=== PATIENT | female | born 1975 | race Native Hawaiian/Other Pacific Islander ===

== ENCOUNTER → 2018-05-01 | Outpatient (CLI) | payer BC ==
[2018-05-01 11:01] VITALS: BP 166/103; PULSE 76; TEMP 98.1; BMI 46.1
--- NOTE | 2018-05-01 11:17 | P.HPBAR ---
Bariatric H&P - History & Physicial H&P Date: 05/01/18 History & Physicial: Visit/CC: Patient initial contact: Initial weight: Initial weight in pounds: Height: 5 ft 7.5 in Initial BMI: Last weight: Current weight: 135.76 kg Current weight in pounds: Current BMI: [place] body weight (based on NIH guidelines): Excess body weight loss: The patient is a 42 year-old F who presents for Bariatric Assessment. HPI: She comes in looking for a bariatric procedure. She is on Nexium and takes Tums regularly. She reports trouble with tomato based food. No family history of gallbladder problems. She wants the sleeve. She reports panniculitis. PLAN: 1. EGD 2. [facility] [place] Bariatric [place]list Checklist: Plan: Checklist: EGD: 1. Hiatal hernia: 2. H. Pylori: HgbA1c: Vitamin D: Smoking: Primary care physician referral: Psychiatry clearance: Cardiology clearance: Sleep study: Diet journal: VTE risk score: VTE risk level: Rehab needs at discharge:
[2018-05-01 13:08] LABS: HGB 13.7 gm/dL (11.4-16.0); MCH 29.3 pg (25.0-35.0); MCHC 32.6 g/dL (31.0-37.0); MCV 89.8 fL (80.0-100.0); Platelet Count 312 k/uL (150-450); RBC 4.67 m/uL (3.80-5.40); RDW 13.6 % (11.5-15.5); WBC 7.8 k/uL (3.8-10.6)
[2018-05-01 19:37] LABS: Albumin 4.3 g/dL (3.80-4.90); Albumin/Globulin Ratio 1.95 (1.60-3.17); Anion Gap 7.5 mmol/L (4.00-12.00); Calcium 9.7 mg/dL (8.7-10.3); Carbon Dioxide 28.5 mmol/L (21.6-31.8); Globulin 2.2 g/dL (1.6-3.3); LDL Cholesterol,Calculated 121.2 mg/dL (0.0-131.0); Potassium 4.4 mmol/L (3.5-5.5); Total Bilirubin 0.3 mg/dL (0.2-1.2); Total Protein 6.5 g/dL (6.2-8.2); VLDL Calculation 26.8 mg/dL (5.00-40.00)
[2018-05-01 19:51] LABS: Iron Saturation 12.3 (12.00-45.00)
[2018-05-01 19:59] LABS: Vitamin D 25 Hydroxy 17.7 ng/mL (30.0-100.0)
[2018-05-01 20:00] LABS: Folate, Serum 6.3 ng/mL
== END ==
LOC: BARWHC3 10:19 → MERGE 10:20
PROVIDERS: ATTEND Surgery Plastic and Reconstructive Surgery
DX: Z48.815 Encounter for surgical aftercare following surgery on the digestive system (principal); E66.01 Morbid (severe) obesity due to excess calories; E88.81 Metabolic syndrome and other insulin resistance; E44.0 Moderate protein-calorie malnutrition; E55.9 Vitamin D deficiency, unspecified; I11.9 Hypertensive heart disease without heart failure; G47.30 Sleep apnea, unspecified; Z68.43 Body mass index [BMI] 50.0-59.9, adult; Z98.84 Bariatric surgery status
CPT/HCPCS: 36415; 80053; 80061; 82306; 82607; 82728; 82746; 83540; 83550; 84425; 84443; 85027; 99201

== ENCOUNTER 2018-06-16 07:02 | Day surgery (SDC) | payer BC ==
[2018-06-12 16:45] VITALS: BMI 44.1
--- NOTE | 2018-06-16 06:28 | P.GSHP ---
History of Present Illness H&P Date: 06/16/18 CHIEF COMPLAINT: GERD HISTORY OF PRESENT ILLNESS: The patient is a 42-year-old female who presents reports gastroesophageal reflux disease. Upper endoscopy was offered for further evaluation and management. PAST MEDICAL HISTORY: Please see list. PAST SURGICAL HISTORY: Please see list. MEDICATIONS: Please see list. ALLERGIES: Please see list. SOCIAL HISTORY: No illicit drug use FAMILY HISTORY: No reports of Crohn disease or ulcerative colitis. REVIEW OF ORGAN SYSTEMS: CONSTITUTIONAL: No reports of fevers or chills. GI: Denies any blood in stools or constipation. PHYSICAL EXAM: VITAL SIGNS: Stable GENERAL: Well-developed and pleasant in no acute distress. HEENT: No scleral icterus. Extraocular movements grossly intact. Moist buccal mucosa. NECK: Supple without lymphadenopathy. CHEST: Unlabored respirations. Equal bilateral excursions. CARDIOVASCULAR: Regular rate and rhythm. Distal 2+ pulses. ABDOMEN: Soft, nondistended. MUSCULOSKELETAL: No clubbing, cyanosis, or edema. ASSESSMENT: 1. Gastroesophageal reflux disease PLAN: 1. Recommend proceeding with an upper endoscopy Past Medical History Past Medical History: Cancer, GERD/Reflux, Osteoarthritis (OA), Thyroid Disorder Additional Past Medical History / Comment(s): hx. thyroid cancer 2014, recent bronchitis now resolved History of Any Multi-Drug Resistant Organisms: None Reported Past Surgical History: Tonsillectomy Additional Past Surgical History / Comment(s): thyroidectomy Past Anesthesia/Blood Transfusion Reactions: Motion Sickness, Postoperative Nausea & Vomiting (PONV) Smoking Status: Never smoker Medications and Allergies Home Medications Medication Instructions Recorded Confirmed Type Esomeprazole Magnesium [NexIUM] 20 mg PO DAILY 05/01/18 06/12/18 History Ibuprofen 200 mg PO Q6H PRN 05/01/18 06/12/18 History Levothyroxine Sodium [Synthroid] 175 mcg PO DAILY 05/01/18 06/12/18 History Phentermine HCl [Adipex-P] 37.5 mg PO DAILY 05/01/18 06/12/18 History Allergies Allergy/AdvReac Type Severity Reaction Status Date / Time No Known Allergies Allergy Verified 06/12/18 16:42
[~2018-06-16 07:02] MED LIST: LACTATED RINGERS 1,000 ML IV SCH
[2018-06-16 07:25] VITALS: TEMP 97.6
[2018-06-16] MEDS ORDERED: LIDOCAINE 1% 20 ML VIAL (10MG/ML) FOR IV START INTRADERMA ONE (07:38)
[2018-06-16] MEDS ORDERED: ONDANSETRON 4 MG/2 ML VIAL IVP ONE (07:39)
[2018-06-16] MEDS ORDERED: LIDOCAINE 1% INJ 10MG/ML (20 ML MDV) ONE (07:52)
[2018-06-16] MEDS ORDERED: PROPOFOL 10 MG/ML 20 ML VIAL IV ONE (07:52)
--- NOTE | 2018-06-16 08:10 | P.PCN ---
Date of Procedure: 06/16/18 Description of Procedure: PREOPERATIVE DIAGNOSIS: Gastroesophageal reflux disease. Morbid obesity. POSTOPERATIVE DIAGNOSIS: Gastroesophageal reflux disease. Morbid obesity. Gastritis, chronic and superficial without bleeding OPERATION: Esophagogastroduodenoscopy with biopsies along antrum. SURGEON: Génesis Montemayor MD ANESTHESIA: MAC. INDICATIONS: The patient is a 42-year-old female who presents with a history of reflux disease. Benefits and risks of the procedure were described. Informed consent was obtained. DESCRIPTION: The patient was brought into the endoscopy suite and laid in the left lateral decubitus position. An Olympus gastroscope was passed along the posterior oropharynx down to the distal esophagus where the squamocolumnar junction was encountered at 42 cm from the incisors. The stomach was entered and no bile reflux was found. Additional findings are listed below. Biopsies with cold forceps were obtained of the antrum. The first through third portion of the duodenum was examined and unremarkable. Retroflexion of the scope confirmed Hill grade 2 lower esophageal valve. The squamocolumnar junction demonstrated LA grade A erosive esophagitis. The stomach was desufflated. The patient tolerated the procedure well. FINDINGS: Squamocolumnar junction 42 cm from the incisors. Diaphragmatic hiatus at 42 cm. Hill grade 2 lower esophageal valve. LA grade A erosive esophagitis. No active duodenitis. Chronic gastritis superficial with cold biopsy forceps obtained along the antrum and fundus of the stomach RECOMMENDATIONS: Upper endoscopy as needed. Plan - Discharge Summary Discharge Rx Participant: No New Discharge Prescriptions: No Action Phentermine HCl [Adipex-P] 37.5 mg PO DAILY Levothyroxine Sodium [Synthroid] 175 mcg PO DAILY Ibuprofen 200 mg PO Q6H PRN PRN Reason: Pain Esomeprazole Magnesium [NexIUM] 20 mg PO DAILY Discharge Medication List Esomeprazole Magnesium [NexIUM] 20 mg PO DAILY 05/01/18 [History] Ibuprofen 200 mg PO Q6H PRN 05/01/18 [History] Levothyroxine Sodium [Synthroid] 175 mcg PO DAILY 05/01/18 [History] Phentermine HCl [Adipex-P] 37.5 mg PO DAILY 05/01/18 [History] Follow up Appointment(s)/Referral(s): [facility] [NON-STAFF] - 07/16/18 Patient Instructions/Handouts: Gastritis (DC) Discharge Disposition: HOME SELF-CARE
[2018-06-16 08:33] VITALS: RESP 18
[2018-06-16 08:38] VITALS: BP 100/70; PULSE 58
== END 2018-06-16 08:45 | disposition home or self-care (01) ==
LOC: ORWHC2ENDO 07:02
PROVIDERS: ATTEND Surgery Plastic and Reconstructive Surgery
DX: K29.50 Unspecified chronic gastritis without bleeding (principal); K21.0 Gastro-esophageal reflux disease with esophagitis; M19.90 Unspecified osteoarthritis, unspecified site; E89.0 Postprocedural hypothyroidism; Z79.890 Hormone replacement therapy; Z79.899 Other long term (current) drug therapy; E66.01 Morbid (severe) obesity due to excess calories; Z68.41 Body mass index [BMI] 40.0-44.9, adult
CPT/HCPCS: 81025; 88305; 43239; J2405; J2001; J2704

== ENCOUNTER → 2018-09-01 | Outpatient (CLI) | payer BC ==
[2018-09-01 13:30] VITALS: BMI 44.6
== END | disposition home or self-care (01) ==
LOC: BARWHC3 08:42
PROVIDERS: ATTEND Surgery Plastic and Reconstructive Surgery
DX: E66.01 Morbid (severe) obesity due to excess calories (principal); Z68.41 Body mass index [BMI] 40.0-44.9, adult
CPT/HCPCS: 97804

== ENCOUNTER → 2018-11-05 | Outpatient (CLI) | payer BC ==
[2018-11-05 17:20] VITALS: BP 123/87; PULSE 53; TEMP 97.9
--- NOTE | 2018-11-05 17:58 | P.PN ---
Subjective Progress Note Date: 11/05/18 DATE OF SERVICE: 11/05/2018 CHIEF COMPLAINT: Morbid obesity HISTORY OF PRESENT ILLNESS: Mojgan Greenberg is a 43-year-old female who comes with lifelong morbid obesity. She was looking into sleeve. She reports panniculitis. She has arthritis of the knee and lower back. She presents for only the 2nd time in the bariatric clinic. She has completed her diet class but has trouble remembering her post-bariatric diet. She has not started to replace her iron or vitamin D in the last 6 months since first checked. Her EKG is outdated from over 1 year ago. She has completed EGD which showed moderate gastritis. She has history of thyroid cancer and is on thyroid supplement. She still has her gallbladder. She presents to have a gastric bypass. She completed medical supervised weight loss. At height of 5 feet 7.5 inches, her ideal body weight is 158 pounds. She comes in 295 pounds from 299 pounds, 6 months ago. She has lost 3 pounds in 6 months. Her body mass index highest is 46.2 down to 45.7. She is 137 pounds overweight. PAST MEDICAL HISTORY: 1. Morbid obesity due to excess calories 2. Body mass index of 46.2, initial 3. Osteoarthritis of the knees. 4. Osteoarthritis of the lower back. 5. Gastroesophageal reflux disease 6. Hypothyroidism PAST SURGICAL HISTORY: 1. Thyroidectomy 2. Tonsillectomy HOME MEDICATIONS: ALLERGIES: Home Medications Medication Instructions Recorded Confirmed Type Esomeprazole Magnesium [NexIUM] 20 mg PO DIRECTED 05/01/18 05/01/18 History Ibuprofen 200 mg PO DIRECTED 05/01/18 05/01/18 History Levothyroxine Sodium [Synthroid] 175 mcg PO DAILY 05/01/18 05/01/18 History Phentermine HCl [Adipex-P] 37.5 mg PO DAILY 05/01/18 05/01/18 History Allergies Allergy/AdvReac Type Severity Reaction Status Date / Time No Known Allergies Allergy Verified 05/01/18 11:02 SOCIAL HISTORY: No past tobacco use. FAMILY HISTORY: No family history of ulcerative colitis disease or Crohn's disease. No lupus in the family. No reports of stomach or esophageal cancer. REVIEW OF ORGAN SYSTEMS: CONSTITUTIONAL: At height of 5 feet 7.5 inches, her ideal body weight is 158 pounds. She comes in 295 pounds from 299 pounds, 6 months ago. She has lost 3 pounds in 6 months. Her body mass index highest is 46.2 down to 45.7. She is 137 pounds overweight. HEENT: Denies any active troubles with vision or hearing. No troubles with swallowing. ENDOCRINE: No diabetes. Has hypothyroidism. CARDIOVASCULAR: No reports of palpitations or heart attacks or chest pain. RESPIRATORY: No pneumonia. No asthma. GI: Denies any bright red blood per rectum. No diarrhea. Has gastroesophageal reflux disease. MUSCULOSKELETAL: Has lower back pain and joint pain. Has osteoarthritis of the knees. NEURO: No headaches. No seizure disorders. PSYCH: No depression. No suicidal ideation. RHEUMATOLOGIC: No lupus. No rheumatoid arthritis. HEMATOLOGIC: Denies any abnormal bleeding or bruising. No personal history of DVTs. SKIN: No rash. No skin cancer. PHYSICAL EXAM: VITAL SIGNS: Height 5 foot 7.5 inches, weight 295 pounds. BMI 45.7 Vital Signs Temp 97.9 F 11/05/18 16:23 Pulse 53 L 11/05/18 16:23 Resp BP 123/87 11/05/18 16:23 Pulse Ox GENERAL: Well-developed in no acute distress. HEENT: No scleral icterus. Extraocular movements grossly intact. Hears conversational speech. No nasal drainage. NECK: Supple without lymphadenopathy. CHEST: Nonlabored respirations with equal bilateral excursions. CARDIOVASCULAR: Regular rate and regular rhythm. Distal 2+ pulses. ABDOMEN: Obese, soft, nontender, nondistended. MUSCULOSKELETAL: No clubbing, cyanosis. Gross strength 5/5 distal lower extremities. NEURO: No focal or lateralizing signs. Cranial nerves 2 through 12 grossly within normal limits. PSYCH: Appropriate affect. Alert and oriented to person, place and time. SKIN: Good skin turgor. Well perfused. LABS: Iron is low at 39, Vitamin D is low 17.7, TSH 0.030 EKG: pending EGD FINDINGS: Squamocolumnar junction 42 cm from the incisors. Diaphragmatic hiatus at 42 cm. Hill grade 2 lower esophageal valve. LA grade A erosive esophagitis. No active duodenitis. Chronic gastritis superficial with cold biopsy forceps obtained along the antrum and fundus of the stomach Final Pathologic Diagnosis GASTRIC ANTRUM, BIOPSY: Chronic gastritis with focal intestinal metaplasia, negative for dysplasia. Reactive changes such as foveolar hyperplasia are seen. Helicobacter organisms are not noted. ASSESSMENT: 1. Morbid obesity due to excess calories 2. Body mass index of 46.2, initial 3. Osteoarthritis of the knees. 4. Osteoarthritis of the lower back. 5. Gastroesophageal reflux disease 6. Hypothyroidism 7. Hypertensive heart disease. 8. Iron deficiency 9. Vitamin D deficiency PLAN: 1. Recommend bariatric labs 2. Recommend EKG 3. Follow up in 2 weeks. 4. She and understands persistent abnormal labs or abnormal EKG will likely delay surgery. 5. She has not had any iron treatments. 6. Vitamin D supplement 50,000 units weekly Objective - Vital Signs Vital signs: Vital Signs Temp 97.9 F 11/05/18 16:23 Pulse 53 L 11/05/18 16:23 Resp BP 123/87 11/05/18 16:23 Pulse Ox
== END | disposition home or self-care (01) ==
LOC: BARWHC3 15:57
PROVIDERS: ATTEND Surgery Plastic and Reconstructive Surgery
DX: E66.01 Morbid (severe) obesity due to excess calories (principal); M17.0 Bilateral primary osteoarthritis of knee; M47.816 Spondylosis without myelopathy or radiculopathy, lumbar region; K21.9 Gastro-esophageal reflux disease without esophagitis; E03.9 Hypothyroidism, unspecified; I11.9 Hypertensive heart disease without heart failure; E61.1 Iron deficiency; E55.9 Vitamin D deficiency, unspecified; Z68.42 Body mass index [BMI] 45.0-49.9, adult; Z85.850 Personal history of malignant neoplasm of thyroid; Z90.09 Acquired absence of other part of head and neck; Z79.890 Hormone replacement therapy; Z79.899 Other long term (current) drug therapy
CPT/HCPCS: 99211

== ENCOUNTER → 2018-11-06 | Outpatient (CLI) | payer BC ==
[2018-11-06 17:40] LABS: HGB 14.2 gm/dL (11.4-16.0); MCH 29.3 pg (25.0-35.0); MCV 88.9 fL (80.0-100.0); Mean Platelet Volume 6.5; Platelet Count 289 k/uL (150-450); RBC 4.84 m/uL (3.80-5.40); RDW 13.8 % (11.5-15.5); WBC 10.7 k/uL (3.8-10.6)
[2018-11-06 17:43] LABS: INR 0.8 (<1.2); Partial Thromboplastin Time 22.9 sec (22.0-30.0); Prothrombin Time 9.4 sec (9.0-12.0)
[2018-11-06 23:44] LABS: African American GFR (CKD) 90.8 (60.0-200.0); Albumin 4.3 g/dL (3.80-4.90); Albumin/Globulin Ratio 1.87 (1.60-3.17); Anion Gap 7.9 mmol/L (4.00-12.00); BUN/Creat Ratio 15.56 Ratio (12.00-20.00); Calcium 9.3 mg/dL (8.7-10.3); Carbon Dioxide 27.1 mmol/L (21.6-31.8); Chol/HDL Ratio 3.83; Globulin 2.3 g/dL (1.6-3.3); LDL Cholesterol,Calculated 121.8 mg/dL (0.0-131.0); Magnesium 1.8 mg/dL (1.5-2.4); Phosphorus 3.8 mg/dL (2.4-5.1); Potassium 4.2 mmol/L (3.5-5.5); Total Bilirubin 0.2 mg/dL (0.3-1.2); Total Protein 6.6 g/dL (6.2-8.2); VLDL Calculation 45.2 mg/dL (5.00-40.00)
[2018-11-07 00:24] LABS: Iron Saturation 9.75 (12.00-45.00)
[2018-11-07 01:16] LABS: Folate, Serum 10.5 ng/mL
[2018-11-07 02:03] LABS: Hemoglobin A1C 5.6 % (4.0-6.0)
[2018-11-07 15:04] LABS: Zinc, Serum 68 ug/dL (60-130)
[2018-11-10 06:57] LABS: Vitamin A 50 ug/dL (38-106)
[2018-11-11 17:08] LABS: Selenium 114 mcg/L (63-160)
== END | disposition home or self-care (01) ==
LOC: LABWHC1 16:49
PROVIDERS: ATTEND Surgery Plastic and Reconstructive Surgery
DX: E66.01 Morbid (severe) obesity due to excess calories (principal); E21.1 Secondary hyperparathyroidism, not elsewhere classified; E89.1 Postprocedural hypoinsulinemia; D50.9 Iron deficiency anemia, unspecified; E44.0 Moderate protein-calorie malnutrition; E55.9 Vitamin D deficiency, unspecified; K74.1 Hepatic sclerosis; N19 Unspecified kidney failure; K50.90 Crohn's disease, unspecified, without complications
CPT/HCPCS: 36415; 80053; 80061; 82306; 82525; 82607; 82728; 82746; 83036; 83540; 83550; 83735; 83970; 84100; 84134; 84255; 84425; 84443; 84590; 84630; 85027; 85610; 85730; 93005

== ENCOUNTER → 2018-11-19 | Outpatient (CLI) | payer BC ==
[2018-11-19 17:07] VITALS: BP 132/88; PULSE 98; RESP 16; TEMP 98.8; BMI 45.6
--- NOTE | 2018-11-19 17:45 | P.PN ---
Subjective Progress Note Date: 11/19/18 DATE OF SERVICE: 11/19/2018 CHIEF COMPLAINT: Morbid obesity HISTORY OF PRESENT ILLNESS: Mojgan Greenberg is a 43-year-old female who comes with lifelong morbid obesity. As a result of her obesity, she has developed osteoarthritis of the knees, osteoarthritis of the lower back, and gastroesophageal reflux disease. She has completed medical supervised weight loss, medical risk assessment. She presents to have a gastric bypass. She has received iron and vitamin D supplements. She comes in with understanding her bariatric diet. Her accompanies her. At height of 5 feet 7.5 inches, her ideal body weight is 158 pounds. She comes in 295 pounds unchanged from 1 month ago. Her body mass index highest is 46.2 down to 45.7. She is 137 pounds overweight. PAST MEDICAL HISTORY: 1. Morbid obesity due to excess calories 2. Body mass index of 46.2, initial 3. Osteoarthritis of the knees. 4. Osteoarthritis of the lower back. 5. Gastroesophageal reflux disease 6. Hypothyroidism PAST SURGICAL HISTORY: 1. Thyroidectomy 2. Tonsillectomy HOME MEDICATIONS: ALLERGIES: Home Medications Medication Instructions Recorded Confirmed Type Esomeprazole Magnesium [NexIUM] 20 mg PO DIRECTED 05/01/18 05/01/18 History Ibuprofen 200 mg PO DIRECTED 05/01/18 05/01/18 History Levothyroxine Sodium [Synthroid] 175 mcg PO DAILY 05/01/18 05/01/18 History Phentermine HCl [Adipex-P] 37.5 mg PO DAILY 05/01/18 05/01/18 History Allergies Allergy/AdvReac Type Severity Reaction Status Date / Time No Known Allergies Allergy Verified 05/01/18 11:02 SOCIAL HISTORY: No past tobacco use. FAMILY HISTORY: No family history of ulcerative colitis disease or Crohn's di sease. No lupus in the family. No reports of stomach or esophageal cancer. REVIEW OF ORGAN SYSTEMS: CONSTITUTIONAL: At height of 5 feet 7.5 inches, her ideal body weight is 158 pounds. She comes in 295 pounds from 299 pounds, 6 months ago. She has lost 3 pounds in 6 months. Her body mass index highest is 46.2 down to 45.7. She is 137 pounds overweight. HEENT: Denies any active troubles with vision or hearing. No troubles with swallowing. ENDOCRINE: No diabetes. Has hypothyroidism. CARDIOVASCULAR: No reports of palpitations or heart attacks or chest pain. RESPIRATORY: No pneumonia. No asthma. GI: Denies any bright red blood per rectum. No diarrhea. Has gastroesophageal reflux disease. MUSCULOSKELETAL: Has lower back pain and joint pain. Has osteoarthritis of the knees. NEURO: No headaches. No seizure disorders. PSYCH: No depression. No suicidal ideation. RHEUMATOLOGIC: No lupus. No rheumatoid arthritis. HEMATOLOGIC: Denies any abnormal bleeding or bruising. No personal history of DVTs. SKIN: No rash. No skin cancer. PHYSICAL EXAM: VITAL SIGNS: Height 5 foot 7.5 inches, weight 295 pounds. BMI 45.7 Vital Signs Temp 98.8 F 11/19/18 17:04 Pulse 98 11/19/18 17:04 Resp 16 11/19/18 17:04 BP 132/88 11/19/18 17:04 Pulse Ox GENERAL: Well-developed in no acute distress. HEENT: No scleral icterus. Extraocular movements grossly intact. Hears conversational speech. No nasal drainage. NECK: Supple without lymphadenopathy. CHEST: Nonlabored respirations with equal bilateral excursions. CARDIOVASCULAR: Regular rate and regular rhythm. Distal 2+ pulses. ABDOMEN: Obese, soft, nontender, nondistended. MUSCULOSKELETAL: No clubbing, cyanosis. Gross strength 5/5 distal lower extremities. NEURO: No focal or lateralizing signs. Cranial nerves 2 through 12 grossly within normal limits. PSYCH: Appropriate affect. Alert and oriented to person, place and time. SKIN: Good skin turgor. Well perfused. LABS: Iron was low under 50, vitamin D is low ASSESSMENT: 1. Morbid obesity due to excess calories 2. Body mass index of 46.2 to 45.7 3. Osteoarthritis of the knees. 4. Osteoarthritis of the lower back. 5. Gastroesophageal reflux disease 6. Hypothyroidism 7. Hypertensive heart disease. 8. Iron deficiency 9. Vitamin D deficiency PLAN: 1. Bariatric options between a sleeve, band and a Gunner-en-Y gastric bypass were reviewed in detail. The patient elected for a gastric bypass. Robotic assisted approach described. 2. The [place] [facility] Data was also reviewed with benefits and risks as described. 3. An 8 page second-generation bariatric consent form was reviewed in detail including potential of bleeding, infection, leaks, adequate weight loss, nutritional deficiencies which the patient demonstrated understanding of the risks. 4. A 2 week high-protein low caloric 800 kcal diet described to address hepatomegaly. 5. Preoperative labs including complete metabolic panel and CBC with type and screen recommended. 6. DVT prophylaxis per [place] [facility]. 7. Antibiotic prophylaxis. 8. Inpatient hospitalization anticipated for more than 2 nights. 9. All questions and concerns were addressed with the patient. Objective - Vital Signs Vital signs: Vital Signs Temp 98.8 F 11/19/18 17:04 Pulse 98 11/19/18 17:04 Resp 16 11/19/18 17:04 BP 132/88 11/19/18 17:04 Pulse Ox Intake & Output 11/18/18 11/19/18 11/19/18 18:59 06:59 18:59 Weight 134.263 kg
== END | disposition home or self-care (01) ==
LOC: BARWHC3 15:54
PROVIDERS: ATTEND Surgery Plastic and Reconstructive Surgery
DX: E66.01 Morbid (severe) obesity due to excess calories (principal); M17.0 Bilateral primary osteoarthritis of knee; M47.816 Spondylosis without myelopathy or radiculopathy, lumbar region; K21.9 Gastro-esophageal reflux disease without esophagitis; E03.9 Hypothyroidism, unspecified; I11.9 Hypertensive heart disease without heart failure; E61.1 Iron deficiency; E55.9 Vitamin D deficiency, unspecified; Z68.42 Body mass index [BMI] 45.0-49.9, adult; Z90.09 Acquired absence of other part of head and neck; Z79.890 Hormone replacement therapy; Z79.899 Other long term (current) drug therapy
CPT/HCPCS: 99211

== ENCOUNTER → 2018-12-06 | Outpatient (CLI) | payer BC ==
[2018-12-06 16:37] LABS: Iron Saturation 16.79 (12.00-45.00)
[2018-12-06 17:50] LABS: Hemoglobin A1C 5.3 % (4.0-6.0)
== END | disposition home or self-care (01) ==
LOC: LABWHC1 11:44
PROVIDERS: ATTEND Surgery Plastic and Reconstructive Surgery
DX: E66.01 Morbid (severe) obesity due to excess calories (principal); D50.8 Other iron deficiency anemias
CPT/HCPCS: 36415; 82728; 83036; 83540; 83550

== ENCOUNTER → 2018-12-06 | Outpatient (CLI) | payer BC ==
[2018-12-06 12:27] LABS: Basophils # (A) 0.1 k/uL (0-0.2); Basophils % (A) 1 %; Eosinophils # (A) 0.2 k/uL (0-0.7); Eosinophils % (A) 2 %; HCT 43.8 % (34.0-46.0); HGB 14.6 gm/dL (11.4-16.0); Lymphocytes # (A) 3.1 k/uL (1.0-4.8); Lymphocytes % (A) 30 %; MCH 29.7 pg (25.0-35.0); MCHC 33.4 g/dL (31.0-37.0); Mean Platelet Volume 6.4; Monocytes # (A) 0.4 k/uL (0-1.0); Monocytes % (A) 4 %; Neutrophils # (A) 6.6 k/uL (1.3-7.7); Neutrophils % (A) 63 %; Platelet Count 294 k/uL (150-450); RBC 4.92 m/uL (3.80-5.40); RDW 14.3 % (11.5-15.5); WBC 10.5 k/uL (3.8-10.6)
[2018-12-06 12:36] LABS: ALT 30 U/L (9-52); AST 23 U/L (14-36); African American GFR (CKD) >90 (>60 ml/min/1.73 sqM); Albumin 4.3 g/dL (3.5-5.0); Alkaline Phosphatase 60 U/L (38-126); Anion Gap 11 mmol/L; Blood Urea Nitrogen 22 mg/dL (7-17); Calcium 9.8 mg/dL (8.4-10.2); Carbon Dioxide 25 mmol/L (22-30); Chloride 103 mmol/L (98-107); Glucose 90 mg/dL (74-99); Potassium 4.4 mmol/L (3.5-5.1); Sodium 139 mmol/L (137-145); Total Bilirubin 0.5 mg/dL (0.2-1.3); Total Protein 7.4 g/dL (6.3-8.2)
== END | disposition home or self-care (01) ==
LOC: LABPAT 11:41
PROVIDERS: ATTEND Surgery Plastic and Reconstructive Surgery
DX: Z01.812 Encounter for preprocedural laboratory examination (principal)
CPT/HCPCS: 80053; 85025

== ENCOUNTER 2018-12-15 07:40 | Inpatient (IN) | payer BC ==
--- NOTE | 2018-12-14 20:42 | P.GSHP ---
History of Present Illness H&P Date: 12/15/18 DATE OF SERVICE: 12/15/2018 CHIEF COMPLAINT: Morbid obesity HISTORY OF PRESENT ILLNESS: Mojgan Greenberg is a 43-year-old female who comes with lifelong morbid obesity. As a result of her obesity, she has developed osteoarthritis of the knees, osteoarthritis of the lower back, and gastroesopha geal reflux disease. She has completed medical supervised weight loss, medical risk assessment. She presents to have a gastric bypass. She has received iron and vitamin D supplements. She comes in with understanding her bariatric diet. Her accompanies her. At height of 5 feet 7.5 inches, her ideal body weight is 158 pounds. She comes in 280 pounds from 295 pounds 3 weeks ago. She has lost 15 pounds in 3 weeks. Her body mass index highest is 46.2 down to 43.4. She is 122 pounds overweight. PAST MEDICAL HISTORY: 1. Morbid obesity due to excess calories 2. Body mass index of 46.2, initial 3. Osteoarthritis of the knees. 4. Osteoarthritis of the lower back. 5. Gastroesophageal reflux disease 6. Hypothyroidism PAST SURGICAL HISTORY: 1. Thyroidectomy 2. Tonsillectomy HOME MEDICATIONS: ALLERGIES: Home Medications Medication Instructions Recorded Confirmed Type Esomeprazole Magnesium [NexIUM] 20 mg PO DIRECTED 05/01/18 05/01/18 History Ibuprofen 200 mg PO DIRECTED 05/01/18 05/01/18 History Levothyroxine Sodium [Synthroid] 175 mcg PO DAILY 05/01/18 05/01/18 History Phentermine HCl [Adipex-P] 37.5 mg PO DAILY 05/01/18 05/01/18 History Allergies Allergy/AdvReac Type Severity Reaction Status Date / Time No Known Allergies Allergy Verified 05/01/18 11:02 SOCIAL HISTORY: No past tobacco use. FAMILY HISTORY: No family history of ulcerative colitis disease or Crohn's disease. No lupus in the family. No reports of stomach or esophageal cancer. REVIEW OF ORGAN SYSTEMS: CONSTITUTIONAL: At height of 5 feet 7.5 inches, her ideal body weight is 158 pounds. Her body mass index highest is 46.2 HEENT: Denies any active troubles with vision or hearing. No troubles with swallowing. ENDOCRINE: No diabetes. Has hypothyroidism. CARDIOVASCULAR: No reports of palpitations or heart attacks or chest pain. RESPIRATORY: No pneumonia. No asthma. GI: Denies any bright red blood per rectum. No diarrhea. Has gastroesophageal reflux disease. MUSCULOSKELETAL: Has lower back pain and joint pain. Has osteoarthritis of the knees. NEURO: No headaches. No seizure disorders. PSYCH: No depression. No suicidal ideation. RHEUMATOLOGIC: No lupus. No rheumatoid arthritis. HEMATOLOGIC: Denies any abnormal bleeding or bruising. No personal history of DVTs. SKIN: No rash. No skin cancer. PHYSICAL EXAM: VITAL SIGNS: Height 5 foot 7.5 inches, weight 280 pounds. BMI 43.4 GENERAL: Well-developed in no acute distress. HEENT: No scleral icterus. Extraocular movements grossly intact. Hears conversational speech. No nasal drainage. NECK: Supple without lymphadenopathy. CHEST: Nonlabored respirations with equal bilateral excursions. CARDIOVASCULAR: Regular rate and regular rhythm. Distal 2+ pulses. ABDOMEN: Obese, soft, nontender, nondistended. MUSCULOSKELETAL: No clubbing, cyanosis. Gross strength 5/5 distal lower extremities. NEURO: No focal or lateralizing signs. Cranial nerves 2 through 12 grossly within normal limits. PSYCH: Appropriate affect. Alert and oriented to person, place and time. SKIN: Good skin turgor. Well perfused. ASSESSMENT: 1. Morbid obesity due to excess calories 2. Body mass index of 46.2 to 43.4 3. Osteoarthritis of the knees. 4. Osteoarthritis of the lower back. 5. Gastroesophageal reflux disease 6. Hypothyroidism 7. Hypertensive heart disease. 8. Iron deficiency 9. Vitamin D deficiency PLAN: 1. Bariatric options between a sleeve, band and a Gunenr-en-Y gastric bypass were reviewed in detail. The patient elected for a gastric bypass. Robotic assisted approach described. 2. The [place] [facility] Data was also reviewed with benefits and risks as described. 3. An 8 page second-generation bariatric consent form was reviewed in detail including potential of bleeding, infection, leaks, adequate weight loss, nutritional deficiencies which the patient demonstrated understanding of the risks. 4. A 2 week high-protein low caloric 800 kcal diet described to address hepatomegaly. 5. Preoperative labs including complete metabolic panel and CBC with type and screen recommended. 6. DVT prophylaxis per [place] [facility]. 7. Antibiotic prophylaxis. 8. Inpatient hospitalization anticipated for more than 2 nights. 9. All questions and concerns were addressed with the patient. Past Medical History Past Medical History: Cancer, GERD/Reflux, Osteoarthritis (OA), Thyroid Disorder Additional Past Medical History / Comment(s): hx. thyroid cancer 2013, vitamin D and Iron deficiencies History of Any Multi-Drug Resistant Organisms: None Reported Past Surgical History: Tonsillectomy Additional Past Surgical History / Comment(s): thyroidectomy Past Anesthesia/Blood Transfusion Reactions: Motion Sickness, Postoperative Nausea & Vomiting (PONV) Additional Past Anesthesia/Blood Transfusion Reaction / Comment(s): Pt reports SEVERE post operative N/V Smoking Status: Never smoker - Past Family History Mother Family Medical History: Cancer Medications and Allergies Home Medications Medication Instructions Recorded Confirmed Type Esomeprazole Magnesium [NexIUM] 20 mg PO DAILY 05/01/18 12/11/18 History Ibuprofen 200 mg PO Q6H PRN 05/01/18 12/11/18 History Levothyroxine Sodium [Synthroid] 175 mcg PO DAILY 05/01/18 12/11/18 History Phentermine HCl [Adipex-P] 37.5 mg PO DAILY 11/19/18 12/11/18 History Allergies Allergy/AdvReac Type Severity Reaction Status Date / Time No Known Allergies Allergy Verified 12/11/18 17:46
[~2018-12-15 07:40] MED LIST changes: +CHLORHEXIDINE GLUCONATE 15 ML CUP MUCOUS MEM ONE; +DEXAMETHASONE SOD PHOSPHATE 10 MG/ML 1 ML VIAL IV ONE; +ENOXAPARIN 40 MG/0.4 ML SYRINGE SQ STA; -LACTATED RINGERS 1,000 ML IV SCH; +LIDOCAINE 1% 20 ML VIAL (10MG/ML) FOR IV START INTRADERMA PRN; +ONDANSETRON 4 MG/2 ML VIAL IVP ONE; +PANTOPRAZOLE 40 MG/10 ML VIAL IV STA; +SCOPOLAMINE 1.5MG/72HR PATCH TRANSDERM ONE; +ceFAZolin 3 GM in SODIUM CHLORIDE 0.9% 100 ML IVPB ONE
[2018-12-15] MEDS: LACTATED RINGERS 1,000 ML IV SCH (09:45)
[2018-12-15] MEDS ORDERED: MIDAZOLAM (PF) 2 MG/2 ML VIAL IV ONE (09:58)
[2018-12-15] MEDS ORDERED: SCOPOLAMINE 1.5MG/72HR PATCH TRANSDERM ONE (09:58)
[2018-12-15] MEDS ORDERED: LIDOCAINE 1%-EPI 1:100,000 20 ML VIAL SQ ONE ×2 (10:02→11:15)
[2018-12-15] MEDS ORDERED: MIDAZOLAM 2 MG/2 ML VIAL ONE (10:34)
[2018-12-15] MEDS ORDERED: diphenhydrAMINE 50 MG/ML 1 ML VIAL ONE (10:34)
[2018-12-15] MEDS ORDERED: fentaNYL (PF) 50 MCG/ML 2 ML AMP ONE (10:34)
[2018-12-15] MEDS ORDERED: GLYCOPYRROLATE 0.2 MG/ML 2 ML VIAL ONE (10:34)
[2018-12-15] MEDS ORDERED: LIDOCAINE 1% INJ 10MG/ML (20 ML MDV) ONE (10:34)
[2018-12-15] MEDS ORDERED: NEOSTIGMINE 1 MG/ML 10 ML VIAL ONE (10:34)
[2018-12-15] MEDS ORDERED: SUCCINYLCHOLINE CHLORIDE VIAL 200 MG/10 ML VIAL IV ONE (10:34)
[2018-12-15] MEDS ORDERED: PROPOFOL 10 MG/ML 20 ML VIAL IV ONE (10:34)
[2018-12-15] MEDS ORDERED: ROCURONIUM BROMIDE 10 MG/ML 10 ML VIAL IV ONE (10:34)
--- NOTE | 2018-12-15 10:59 | P.HPADDEND ---
H&P Addendum H&P Addendum Date: 12/15/18 Bariatric surgery options reviewed. Patient has elected for sleeve gastrectomy. Benefits and risks were described.
[2018-12-15] MEDS ORDERED: LACTATED RINGERS 1,000 ML IV ONE ×3 (11:42→13:35)
[2018-12-15] MEDS ORDERED: ONDANSETRON 4 MG/2 ML VIAL IVP ONE (12:30)
--- NOTE | 2018-12-15 12:31 | P.OP ---
Date of Procedure: 12/15/18 Description of Procedure: SURGEON: RACHAEL ACEVEDO MD PREOPERATIVE DIAGNOSES: 1. Morbid obesity due to excess calories 2. Body mass index of 46.2 to 43.4 3. Osteoarthritis of the knees. 4. Osteoarthritis of the lower back. 5. Gastroesophageal reflux disease 6. Hypothyroidism 7. Hypertensive heart disease. 8. Iron deficiency 9. Vitamin D deficiency POSTOPERATIVE DIAGNOSES: 1. Morbid obesity due to excess calories 2. Body mass index of 46.2 to 43.4 3. Osteoarthritis of the knees. 4. Osteoarthritis of the lower back. 5. Gastroesophageal reflux disease 6. Hypothyroidism 7. Hypertensive heart disease. 8. Iron deficiency 9. Vitamin D deficiency OPERATION: 1. Robotic assisted daVinci Xi laparoscopic sleeve gastrectomy with 40-Tuvaluan bougie, multiport. 2. Intraoperative esophagogastroduodenoscopy. ANESTHESIA: Gen. local anesthetic ESTIMATED BLOOD LOSS: 5 mL SPECIMENS REMOVED: Sleeve gastrectomy COMPLICATIONS: None. INDICATIONS: Mojgan Greenberg is a 43-year-old female who comes with lifelong morbid obesity. As a result of her obesity, she has developed osteoarthritis of the knees, osteoarthritis of the lower back, and gastroesophageal reflux disease. She has completed medical supervised weight loss, medical risk assessment. At height of 5 feet 7.5 inches, her ideal body weight is 158 pounds. She comes in 280 pounds from 295 pounds 3 weeks ago. She has lost 15 pounds in 3 weeks. Her body mass index highest is 46.2 down to 43.4. She is 122 pounds overweight. She comes in for sleeve gastrectomy. All surgical options for morbid obesity had been described using the [place] bariatric surgery collaborative comorbidity resolution including complication risk score. A second-generation bariatric consent form was described in detail including the possibility of protein malnutrition, leaks, gastric stricture, venous thrombosis, gastroesophageal reflux disease, need for further surgery for which she demonstrated understanding. Benefits and risks of the procedure were described at length. Informed consent was obtained. DESCRIPTION: The patient was brought into the operating room theater. Preoperatively she had received Lovenox subcutaneously for DVT prophylaxis. Additionally she had Peridex oral solution as an oral decontaminant. After general induction, the abdomen was prepped and draped in standard sterile fashion. An Ioban draping was placed along the abdomen. Aggarwal catheter was placed. A robotic da Lamine Xi system was prepped and primed. The xiphoid to umbilicus measured 20 cm. At 15 cm from the xiphoid, proposed port sites were marked with indelible marker along the anterior axillary line bilaterally, mid axillary line bilaterally with each ports were marked 10 to 15 cm from each other. The educational program assistant port was marked along the left lateral abdominal wall. The robotic stapler port was marked for the right midclavicular line. A 5 mm 0 degrees laparoscopic trocar entry was performed along the left upper quadrant. The abdomen was insufflated to 15 mmHg pressure he tolerated well. Diagnostic laparoscopy demonstrated no injury to bowel, viscera, or mesentery. The liver surface was remarkable for mild hepatomegaly. No injury had occurred to the small bowel or viscera. Along the hiatus no evidence of large prominent hiatal hernia. A 8 mm port was placed along the right upper abdominal wall after exchanging the 5 mm port. A separate 8 mm port was placed along the left lateral abdominal wall. Please note that the ports were placed at least 20 cm away from the target anatomy. Care was taken to check each robotic arms were safely away from collision with the bed or the patient. At the epigastrium, a median sized Patricia liver retractor was placed under direct visualization with the Iron Social Studies Teacher placed under the right shoulder of the patient. Next, 12-mm robot stapler port was placed along the right upper quadrant. The camera 8-mm port was maintained along the epigastrium, The patient was repositioned in reverse Trendelenburg position at 20-degrees after lowering the bed. The robot was docked along the left side of the patient. Using a grasper for arm 4, a veseel sealer for arm 3, including grasper for arm 1, the robotic system was docked and primed as described. Instruments were interchanged by the educational program assistant for stapler loads. The camera was placed at 30-degrees down. I had sat at the console. The pylorus was identified and 6 cm proximally along the greater curvature of the stomach, the short gastrics were mobilized upwards to the angle of His using a vessel sealer. Hemostasis was excellent during this portion of the procedure. Next, the upper pole of the stomach was adherent to the left christopher, which was gently dissected free using atraumatic grasper. The nursing nylon winder placed a 40-Tuvaluan blunted bougie into the stomach. Robotic stapler green loads 60 mm x 3, followed by blue 60 mm x 3 loads were used to create the sleeve. Initial firing was across the antrum of the stomach towards the angle of His. The staple line was completely hemostatic and linear w ithout corkscrewing. Hemostasis was excellent. The space from the angularis incisura of the sleeve was approximately 4 cm. I then went to the head of the bed to perform the intraoperative esophagog astroduodenoscopy leak test. The upper pole of the stomach was bathed using normal saline solution. The scope was withdrawn with careful inspection along the staple line for which no leaks were found along the entire length. Additionally,the sleeve was completely hemostatic without any encroachment along the angularis incisura. Its topology was a soft "J". No stricture was encountered upon placement of the scope. The GI tract was desufflated. The patient tolerated this portion of the procedure well. The scope was completely withdrawn. The robot was undocked. I then rescrubbed into case, whereby the irrigation fluid was aspirated from the abdominal cavity. Tisseel fibrin sealant was placed along the entire staple length. Once dried the Patricia liver retractor was removed. Attention was now brought to removal of the specimen. The distal end of the sleeve gastrectomy specimen was brought out through the 12 mm port at the left upper quadrant. The specimen was gently removed en total .No contamination had occurred during this process. All instruments and pneumoperitoneum including irrigation fluid was removed from the abdominal cavity. The 12 mm port site was closed using 0-Vicryl and Kamar Martinez and irrigated with diluted hydrogen peroxide. The final incisions were closed using subcuticular interrupted suture of 4-0 Monocryl. Dermabond was applied to the skin once the skin had been cleansed. OptiFoam dressing was placed along the stomach extraction site. At the end of the procedure, needle, sponge, and instrument count was verified correct by the surgical training specialist. The patient was taken to the postanesthesia care unit in stable condition. She had tolerated the procedure well. Intraoperative films and findings were reviewed with the patient's family. FINDINGS: 1. Negative intraoperative esophagogastrojejunoscopy leak test. 2. No hepatomegaly or large hiatus hernia. 3. Total of 6 staplers used including 3 - 60 mm green robot wisam and 3 - 60 mm blue robot loads used to create the gastric sleeve. 4. Xiphoid to umbilicus of 20 cm. 5. Trocars placed 15 cm from xiphoid process 6. Sleeve gastrectomy 20 x 6 cm 7. Console time 30 minutes
[2018-12-15] MEDS ORDERED: diphenhydrAMINE 50 MG/ML 1 ML VIAL IVP PRN (12:38)
[2018-12-15] MEDS ORDERED: HYDROcodone/APAP 15 ML SOLUTION PO PRN (12:38)
[2018-12-15] MEDS ORDERED: NALOXONE 0.4 MG/ML 1 ML VIAL IV PRN (12:38)
[2018-12-15] MEDS: HYDROmorphone 0.5 MG/0.5 ML SYRINGE IVP PRN ×4 (12:56→13:48)
[2018-12-15] MEDS: ACETAMINOPHEN IV (For NPO) 1,000 MG in EMPTY BAG 1 BAG IVPB ONE ×2 (13:15→13:30)
[2018-12-15] MEDS: 0.9% NACL WITH KCL 20 MEQ/L 1,000 ML IV SCH ×2 (16:51→17:27)
[2018-12-15] MEDS ORDERED: DEXAMETHASONE SOD PHOSPHATE 10 MG/ML 1 ML VIAL IV PRN (17:22)
[2018-12-15] MEDS: SIMETHICONE 40 MG/0.6 ML DROPS 2,000 MG/30 ML BOTTLE PO SCH ×2 (17:28→23:03)
[2018-12-15] MEDS: HYOSCYAMINE ORAL DROPS 1.875 MG/15 ML BOTTLE PO SCH ×2 (17:29→23:03)
[2018-12-15] MEDS: ALBUTEROL NEBULIZED 2.5 MG/3 ML INHALATION SCH ×2 (17:36→20:06)
[2018-12-15] MEDS: METOCLOPRAMIDE 5 MG/ML 2 ML VIAL IVP SCH ×2 (17:41→23:05)
[2018-12-15] MEDS: ONDANSETRON 4 MG/2 ML VIAL IVP SCH ×2 (17:42→23:05)
[2018-12-15] MEDS: DEXAMETHASONE SOD PHOSPHATE 4 MG/ML 1 ML VIAL IV SCH ×2 (17:42→23:04)
[2018-12-15] MEDS: HYDROmorphone 1 MG/ML 1 ML SYRINGE IVP PRN ×2 (18:41→23:12)
[2018-12-15] MEDS: ceFAZolin 3 GM in SODIUM CHLORIDE 0.9% 100 ML IVPB SCH (19:24)
[2018-12-16] MEDS: 0.9% NACL WITH KCL 20 MEQ/L 1,000 ML IV SCH ×2 (01:36→20:32)
[2018-12-16] MEDS: ceFAZolin 3 GM in SODIUM CHLORIDE 0.9% 100 ML IVPB SCH (02:03)
[2018-12-16] MEDS: LACTATED RINGERS 1,000 ML IV SCH (02:08)
[2018-12-16] MEDS: ONDANSETRON 4 MG/2 ML VIAL IVP SCH ×3 (05:11→17:51)
[2018-12-16] MEDS: METOCLOPRAMIDE 5 MG/ML 2 ML VIAL IVP SCH ×3 (05:11→17:51)
[2018-12-16] MEDS: DEXAMETHASONE SOD PHOSPHATE 4 MG/ML 1 ML VIAL IV SCH ×3 (05:11→17:51)
[2018-12-16] MEDS: HYOSCYAMINE ORAL DROPS 1.875 MG/15 ML BOTTLE PO SCH ×4 (05:12→23:10)
[2018-12-16] MEDS: SIMETHICONE 40 MG/0.6 ML DROPS 2,000 MG/30 ML BOTTLE PO SCH ×4 (05:12→23:10)
[2018-12-16] MEDS: ENOXAPARIN 40 MG/0.4 ML SYRINGE SQ SCH (05:16)
[2018-12-16] MEDS: HYDROmorphone 1 MG/ML 1 ML SYRINGE IVP PRN ×2 (05:32→12:34)
[2018-12-16 06:30] LABS: Basophils % (A) 0 %; Eosinophils # (A) 0.1 k/uL (0-0.7); Eosinophils % (A) 1 %; HCT 41.3 % (34.0-46.0); HGB 13.9 gm/dL (11.4-16.0); Lymphocytes # (A) 1.3 k/uL (1.0-4.8); Lymphocytes % (A) 12 %; MCH 29.7 pg (25.0-35.0); MCHC 33.8 g/dL (31.0-37.0); MCV 87.9 fL (80.0-100.0); Mean Platelet Volume 6.2; Monocytes # (A) 0.4 k/uL (0-1.0); Monocytes % (A) 4 %; Neutrophils # (A) 8.6 k/uL (1.3-7.7); Neutrophils % (A) 83 %; Platelet Count 273 k/uL (150-450); RBC 4.69 m/uL (3.80-5.40); RDW 13.9 % (11.5-15.5); WBC 10.4 k/uL (3.8-10.6)
[2018-12-16 06:38] LABS: African American GFR (CKD) >90 (>60 ml/min/1.73 sqM); Anion Gap 12 mmol/L; Blood Urea Nitrogen 7 mg/dL (7-17); Calcium 8.8 mg/dL (8.4-10.2); Carbon Dioxide 24 mmol/L (22-30); Chloride 102 mmol/L (98-107); Magnesium 1.6 mg/dL (1.6-2.3); Phosphorus 3.2 mg/dL (2.5-4.5); Potassium 4.7 mmol/L (3.5-5.1); Sodium 138 mmol/L (137-145)
[2018-12-16] MEDS: ALBUTEROL NEBULIZED 2.5 MG/3 ML INHALATION SCH ×4 (08:53→21:00)
[2018-12-16] MEDS: PANTOPRAZOLE 40 MG/10 ML VIAL IV SCH (09:28)
[2018-12-16] MEDS ORDERED: hydrALAZINE HCL 20 MG/ML 1 ML VIAL IVP PRN (10:10)
--- NOTE | 2018-12-16 10:47 | FL ---
EXAMINATION TYPE: FL esophagus cervic/pharynx DATE OF EXAM: 12/16/2018 LIMITED UGI-ESOPHAGRAM: CLINICAL HISTORY: Post gastric sleeve TECHNIQUE: Limited esophagram is performed utilizing 20 mL of Omnipaque 350. A total of 46 seconds o f fluoroscopic time was utilized during procedure. Images: 53 FINDINGS: Esophagus dilates to normal caliber has normal contour to the gastroesophageal junction. Gastroesopha geal junction opens to normal caliber. No significant hesitancy passing through the gastric sleeve is evident. Contrast extends into the proximal duodenum. No extravasation of contrast is evident. No fr ee air is evident. IMPRESSION: 1. No significant hesitancy through a recent postoperative gastric sleeve
[2018-12-16] MEDS: MAGNESIUM SULFATE-D5W PMX 1 GM in DEXTROSE/WATER 1 100ML.BAG IVPB SCH ×3 (12:26→20:34)
--- NOTE | 2018-12-16 13:40 | P.PN ---
<Lisa Louis A - Last Filed: 12/16/18 13:40> Subjective Progress Note Date: 12/16/18 CHIEF COMPLAINT: Morbid obesity HISTORY OF PRESENT ILLNESS: Patient is s/p sleeve gastrectomy. POD #1. Patient examined this morning at the bedside. She reports abdominal pain is tolerable. S he reports mild nausea. She states she had a few episodes of vomiting overnight followed by some dry heaves. Esophagram completed this morning negative for leak or obstruction. Patients BP was significantly elevated yesterday evening but has improved today with most recent BP 143/81. PHYSICAL EXAM: VITAL SIGNS: Reviewed GENERAL: Well-developed in no acute distress. HEENT: No sclera icterus. Extraocular movements grossly intact. Moist buccal mucosa. Head is atraumatic, normocephalic. Hears conversational speech. No nasal drainage. NECK: Supple without lymphadenopathy. CHEST: Non-labored respirations and equal bilateral excursions. CARDIOVASCULAR: Regular rate with regular rhythm. Palpable 2+ radial pulses. ABDOMEN: Soft. Nondistended. Appropriate surgical tenderness. Incision sites clean dry intact. MUSCULOSKELETAL: No clubbing, cyanosis or edema. NEUROLOGIC: No focal or lateralizing signs. Cranial nerves II through XII grossly intact. PSYCH: Appropriate affect. Alert and oriented to person, place and time. SKIN: Well perfused. Good skin turgor. ASSESSMENT: 1. Morbid obesity due to excess calories 2. Body mass index of 46.2 to 43.4 3. Osteoarthritis of the knees. 4. Osteoarthritis of the lower back. 5. Gastroesophageal reflux disease 6. Hypothyroidism 7. Hypertensive heart disease. 8. Iron deficiency 9. Vitamin D deficiency PLAN: 1. Continue Reglan, Decadron, and Zofran scheduled 2. Pain control 3. Clear liquids as tolerated. Patient instructed if her nausea worsens to stop taking in fluids to prevent emesis 4. Continue IV fluids 5. Activity as tolerated 6. Incentive spirometry 7. Hydralazine IVP PRN for SBP greater than 180 8. Replace magnesium IVPB Nurse practitioner note has been reviewed by physician. Signing provider agrees with the documented findings, assessment, and plan of care. Objective - Vital Signs Vital signs: Vital Signs Temp 98.8 F 12/16/18 07:00 Pulse 90 12/16/18 11:30 Resp 12 12/16/18 07:00 BP 143/81 12/16/18 12:27 Pulse Ox 97 12/16/18 11:20 Intake & Output 12/15/18 12/16/18 12/16/18 18:59 06:59 18:59 Intake Total 2250 480 Output Total 5 Balance 2245 480 Intake: IV 2250 Oral 480 Output: Estimated Blood Loss 5 Other: Voiding Method Toilet # Voids 0 1 - Labs CBC & Chem 7: 12/16/18 06:05 12/16/18 06:05 Labs: Abnormal Lab Results - Last 24 Hours (Table) 12/16/18 Range/Units 06:05 Neutrophils # 8.6 H (1.3-7.7) k/uL Assessment and Plan (1) Morbid (severe) obesity due to excess calories Current Visit: Yes Status: Acute Code(s): E66.01 - MORBID (SEVERE) OBESITY DUE TO EXCESS CALORIES SNOMED Code(s): 512370735 <Génesis Montemayor N - Last Filed: 12/16/18 20:11> Subjective Overall nausea secondary to codeine from Dilaudid including [place] elixir. We'll discontinue Dilaudid including [place] elixir. We'll start on Tylenol. She is encouraged oral hydration. Anticipate discharge tomorrow upon correction of nausea Objective - Vital Signs Vital signs: Vital Signs Temp 98.2 F 12/16/18 14:07 Pulse 99 12/16/18 14:07 Resp 12 12/16/18 14:07 BP 132/68 12/16/18 14:07 Pulse Ox 97 12/16/18 14:07 Intake & Output 12/16/18 12/16/18 12/17/18 06:59 18:59 06:59 Intake Total 480 60 Balance 480 60 Intake: Oral 480 60 Other: # Voids 1 2 - Labs CBC & Chem 7: 12/16/18 06:05 12/16/18 06:05 Labs: Abnormal Lab Results - Last 24 Hours (Table) 12/16/18 Range/Units 06:05 Neutrophils # 8.6 H (1.3-7.7) k/uL
[2018-12-16] MEDS ORDERED: SODIUM CHLORIDE 0.9% 2,000 ML IV ONE (13:57)
[2018-12-16] MEDS ORDERED: DEXAMETHASONE SOD PHOSPHATE 10 MG/ML 1 ML VIAL IV STA (13:57)
[2018-12-16] MEDS ORDERED: ACETAMINOPHEN ORAL SUSP 160 MG/5 ML CUP PO PRN (19:18)
[2018-12-16] MEDS: ACETAMINOPHEN ORAL SUSP (PEDS) 3,840 MG/120 ML BOTTLE PO PRN (20:35)
[2018-12-17] MEDS: ONDANSETRON 4 MG/2 ML VIAL IVP SCH ×2 (00:54→05:39)
[2018-12-17] MEDS: METOCLOPRAMIDE 5 MG/ML 2 ML VIAL IVP SCH ×3 (00:54→12:55)
[2018-12-17] MEDS: DEXAMETHASONE SOD PHOSPHATE 4 MG/ML 1 ML VIAL IV SCH ×3 (00:54→12:56)
[2018-12-17] MEDS: MAGNESIUM SULFATE-D5W PMX 1 GM in DEXTROSE/WATER 1 100ML.BAG IVPB SCH (01:05)
[2018-12-17] MEDS: LACTATED RINGERS 1,000 ML IV SCH (01:27)
[2018-12-17] MEDS: 0.9% NACL WITH KCL 20 MEQ/L 1,000 ML IV SCH ×2 (02:40→04:05)
[2018-12-17] MEDS: HYOSCYAMINE ORAL DROPS 1.875 MG/15 ML BOTTLE PO SCH ×2 (05:38→12:55)
[2018-12-17] MEDS: SIMETHICONE 40 MG/0.6 ML DROPS 2,000 MG/30 ML BOTTLE PO SCH ×2 (05:38→12:55)
[2018-12-17] MEDS: ACETAMINOPHEN ORAL SUSP (PEDS) 3,840 MG/120 ML BOTTLE PO PRN ×2 (05:52→12:54)
[2018-12-17 07:46] VITALS: BP 127/85; PULSE 78; TEMP 97.7
[2018-12-17] MEDS ORDERED: BISACODYL 5 MG TABLET.DR PO PRN (08:00)
[2018-12-17] MEDS: ALBUTEROL NEBULIZED 2.5 MG/3 ML INHALATION SCH ×3 (08:06→15:23)
[2018-12-17] MEDS: PANTOPRAZOLE 40 MG/10 ML VIAL IV SCH (08:16)
[2018-12-17] MEDS: ENOXAPARIN 40 MG/0.4 ML SYRINGE SQ SCH (08:16)
[2018-12-17 09:09] VITALS: BMI 42.7
[2018-12-17 11:55] VITALS: RESP 16
[2018-12-17] MEDS ORDERED: ONDANSETRON 4 MG/2 ML VIAL IVP SCH (12:00)
--- NOTE | 2018-12-17 13:18 | P.DS ---
Providers Date of admission: 12/15/18 09:03 Expected date of discharge: 12/17/18 Attending physician: Génesis Montemayor Primary care physician: Yohannes Cespedes - Discharge Diagnosis(es) (1) BMI 40.0-44.9, adult Status: Acute (2) S/P laparoscopic sleeve gastrectomy Status: Acute (3) Gastroesophageal reflux Status: Acute (4) Hypertensive heart disease Status: Acute (5) Hypothyroidism Status: Acute (6) Iron deficiency anemia Status: Acute (7) Post-operative nausea and vomiting Status: Acute (8) Osteoarthritis of knee Status: Acute (9) Osteoarthritis of back Status: Acute (10) Morbid (severe) obesity due to excess calories Status: Acute Hospital Course: POSTOPERATIVE DIAGNOSES: 1. Morbid obesity due to excess calories 2. Body mass index of 46.2 to 43.4 3. Osteoarthritis of the knees. 4. Osteoarthritis of the lower back. 5. Gastroesophageal reflux disease 6. Hypothyroidism 7. Hypertensive heart disease. 8. Iron deficiency 9. Vitamin D deficiency COURSE: Mojgan Greenberg is a 43-year-old female who comes with lifelong morbid obesity. As a result of her obesity, she has developed osteoarthritis of the knees, osteoarthritis of the lower back, and gastroesophageal reflux disease. She has completed medical supervised weight loss, medical risk assessment. At height of 5 feet 7.5 inches, her ideal body weight is 158 pounds. She comes in 280 pounds from 295 pounds 3 weeks ago. She has lost 15 pounds in 3 weeks. Her body mass index highest is 46.2 down to 43.4. She is 122 pounds overweight. She underwent sleeve gastrectomy 12/15/2018. Post-procedure, she had post op nausea and vomiting with intolerance to codeine. Her nausea resolved. She was tolerating liquids. Nausea is resolved after discontinuing all codeine. Pain is controlled. Follow up saturday in 48 hrs bariatric center. Vital Signs 12/15/18 12/15/18 12/15/18 09:26 10:05 12:32 Temperature 98.1 F 97.5 F L Pulse Rate Pulse Rate [ Bilateral Dorsalis Pedis] Pulse Rate [ 93 83 71 Pulse Oximetery ] Respiratory 16 16 16 Rate Blood Pressure 132/71 141/85 [Left Arm] O2 Sat by Pulse 99 94 L 95 Oximetry O2 Sat by Pulse Oximetry [Room Air Post Exercise] O2 Sat by Pulse Oximetry [Room Air at Rest] 12/15/18 12/15/18 12/15/18 12:47 13:02 13:17 Temperature Pulse Rate Pulse Rate [ Bilateral Dorsalis Pedis] Pulse Rate [ 61 61 60 Pulse Oximetery ] Respiratory 16 16 16 Rate Blood Pressure 144/80 142/76 144/79 [Left Arm] O2 Sat by Pulse 94 L 95 94 L Oximetry O2 Sat by Pulse Oximetry [Room Air Post Exercise] O2 Sat by Pulse Oximetry [Room Air at Rest] 12/15/18 12/15/18 12/15/18 13:32 13:47 14:15 Temperature 98.7 F Pulse Rate Pulse Rate [ Bilateral Dorsalis Pedis] Pulse Rate [ 64 61 76 Pulse Oximetery ] Respiratory 16 16 12 Rate Blood Pressure 143/64 144/68 157/96 [Left Arm] O2 Sat by Pulse 95 96 95 Oximetry O2 Sat by Pulse Oximetry [Room Air Post Exercise] O2 Sat by Pulse Oximetry [Room Air at Rest] 12/15/18 12/15/18 12/15/18 14:30 14:45 15:00 Temperature Pulse Rate Pulse Rate [ Bilateral Dorsalis Pedis] Pulse Rate [ 77 78 79 Pulse Oximetery ] Respiratory Rate Blood Pressure 151/92 154/100 150/100 [Left Arm] O2 Sat by Pulse Oximetry O2 Sat by Pulse Oximetry [Room Air Post Exercise] O2 Sat by Pulse Oximetry [Room Air at Rest] 12/15/18 12/15/18 12/15/18 15:15 15:30 15:45 Temperature Pulse Rate Pulse Rate [ Bilateral Dorsalis Pedis] Pulse Rate [ 78 80 75 Pulse Oximetery ] Respiratory Rate Blood Pressure 145/69 161/98 143/103 [Left Arm] O2 Sat by Pulse Oximetry O2 Sat by Pulse Oximetry [Room Air Post Exercise] O2 Sat by Pulse Oximetry [Room Air at Rest] 12/15/18 12/15/18 12/15/18 16:00 19:16 20:08 Temperature 97.4 F L Pulse Rate 87 Pulse Rate [ Bilateral Dorsalis Pedis] Pulse Rate [ 73 83 Pulse Oximetery ] Respiratory 15 Rate Blood Pressure 152/107 163/100 [Left Arm] O2 Sat by Pulse 95 Oximetry O2 Sat by Pulse Oximetry [Room Air Post Exercise] O2 Sat by Pulse Oximetry [Room Air at Rest] 12/15/18 12/15/18 12/15/18 20:15 20:54 21:03 Temperature Pulse Rate 88 Pulse Rate [ 73 Bilateral Dorsalis Pedis] Pulse Rate [ Pulse Oximetery ] Respiratory 16 Rate Blood Pressure 147/91 [Left Arm] O2 Sat by Pulse 95 94 L Oximetry O2 Sat by Pulse Oximetry [Room Air Post Exercise] O2 Sat by Pulse Oximetry [Room Air at Rest] 12/16/18 12/16/18 12/16/18 00:33 04:39 07:00 Temperature 98.5 F 98.8 F Pulse Rate Pulse Rate [ 78 Bilateral Dorsalis Pedis] Pulse Rate [ 96 Pulse Oximetery ] Respiratory 15 12 Rate Blood Pressure 147/99 168/95 [Left Arm] O2 Sat by Pulse 94 L 95 96 Oximetry O2 Sat by Pulse Oximetry [Room Air Post Exercise] O2 Sat by Pulse Oximetry [Room Air at Rest] 12/16/18 12/16/18 12/16/18 08:15 11:20 11:30 Temperature Pulse Rate 90 90 Pulse Rate [ Bilateral Dorsalis Pedis] Pulse Rate [ Pulse Oximetery ] Respiratory Rate Blood Pressure [Left Arm] O2 Sat by Pulse 97 Oximetry O2 Sat by Pulse 96 Oximetry [Room Air Post Exercise] O2 Sat by Pulse 99 Oximetry [Room Air at Rest] 12/16/18 12/16/18 12/16/18 12:27 14:07 19:31 Temperature 98.2 F 99.1 F Pulse Rate Pulse Rate [ 99 Bilateral Dorsalis Pedis] Pulse Rate [ 74 Pulse Oximetery ] Respiratory 12 12 Rate Blood Pressure 143/81 132/68 146/92 [Left Arm] O2 Sat by Pulse 97 97 Oximetry O2 Sat by Pulse Oximetry [Room Air Post Exercise] O2 Sat by Pulse Oximetry [Room Air at Rest] 12/17/18 12/17/18 12/17/18 01:30 07:45 08:10 Temperature 99.3 F 97.7 F Pulse Rate Pulse Rate [ Bilateral Dorsalis Pedis] Pulse Rate [ 82 78 Pulse Oximetery ] Respiratory 15 14 16 Rate Blood Pressure 151/94 127/85 [Left Arm] O2 Sat by Pulse 99 96 Oximetry O2 Sat by Pulse Oximetry [Room Air Post Exercise] O2 Sat by Pulse Oximetry [Room Air at Rest] Laboratory Last Values WBC 10.4 k/uL (3.8-10.6) 12/16/18 06:05 RBC 4.69 m/uL (3.80-5.40) 12/16/18 06:05 Hgb 13.9 gm/dL (11.4-16.0) 12/16/18 06:05 Hct 41.3 % (34.0-46.0) 12/16/18 06:05 MCV 87.9 fL (80.0-100.0) 12/16/18 06:05 MCH 29.7 pg (25.0-35.0) 12/16/18 06:05 MCHC 33.8 g/dL (31.0-37.0) 12/16/18 06:05 RDW 13.9 % (11.5-15.5) 12/16/18 06:05 Plt Count 273 k/uL (150-450) 12/16/18 06:05 Neutrophils % 83 % 12/16/18 06:05 Lymphocytes % 12 % 12/16/18 06:05 Monocytes % 4 % 12/16/18 06:05 Eosinophils % 1 % 12/16/18 06:05 Basophils % 0 % 12/16/18 06:05 Neutrophils # 8.6 k/uL (1.3-7.7) H 12/16/18 06:05 Lymphocytes # 1.3 k/uL (1.0-4.8) 12/16/18 06:05 Monocytes # 0.4 k/uL (0-1.0) 12/16/18 06:05 Eosinophils # 0.1 k/uL (0-0.7) 12/16/18 06:05 Basophils # 0.0 k/uL (0-0.2) 12/16/18 06:05 Sodium 138 mmol/L (137-145) 12/16/18 06:05 Potassium 4.7 mmol/L (3.5-5.1) 12/16/18 06:05 Chloride 102 mmol/L (98-107) 12/16/18 06:05 Carbon Dioxide 24 mmol/L (22-30) 12/16/18 06:05 Anion Gap 12 mmol/L 12/16/18 06:05 BUN 7 mg/dL (7-17) 12/16/18 06:05 Creatinine 0.58 mg/dL (0.52-1.04) 12/16/18 06:05 Est GFR (CKD-EPI)AfAm >90 (>60 ml/min/1.73 sqM) 12/16/18 06:05 Est GFR (CKD-EPI)NonAf >90 (>60 ml/min/1.73 sqM) 12/16/18 06:05 Calcium 8.8 mg/dL (8.4-10.2) 12/16/18 06:05 Phosphorus 3.2 mg/dL (2.5-4.5) 12/16/18 06:05 Magnesium 2.3 mg/dL (1.6-2.3) 12/17/18 06:50 Blood Type A Negative 12/06/18 11:54 Blood Type Confirm A Negative 12/15/18 09:41 Blood Type Recheck No Previous Record 12/06/18 11:54 Bld Type Recheck Status CABO Indicated 12/06/18 11:54 Antibody Screen NEGATIVE 12/06/18 11:54 Spec Expiration Date 12/17/18 2720 12/06/18 11:54 Procedures: OPERATION: 1. Robotic assisted daVinci Xi laparoscopic sleeve gastrectomy with 40-Lao bougie, multiport. 2. Intraoperative esophagogastroduodenoscopy. ANESTHESIA: Gen. local anesthetic ESTIMATED BLOOD LOSS: 5 mL SPECIMENS REMOVED: Sleeve gastrectomy COMPLICATIONS: None. Patient Condition at Discharge: Good Plan - Discharge Summary Discharge Rx Participant: Yes New Discharge Prescriptions: New Bisacodyl [Dulcolax] 5 mg PO DAILY PRN #10 tablet.dr PRN Reason: Constipation Simethicone 40 mg/0.6 ml Drops [Mylicon Drops] 40 mg PO PCHS PRN #30 ml PRN Reason: Gas Ondansetron Odt [Zofran Odt] 4 mg PO Q8HR PRN #9 tab PRN Reason: Nausea Acetaminophen Oral Susp [Tylenol Oral Susp] 500 mg PO Q4-6H #300 ml Continue Levothyroxine Sodium [Synthroid] 175 mcg PO DAILY Esomeprazole Magnesium [NexIUM] 20 mg PO DAILY Discontinued Ibuprofen 200 mg PO Q6H PRN PRN Reason: Pain Phentermine HCl [Adipex-P] 37.5 mg PO DAILY Discharge Medication List Esomeprazole Magnesium [NexIUM] 20 mg PO DAILY 05/01/18 [History] Levothyroxine Sodium [Synthroid] 175 mcg PO DAILY 05/01/18 [History] Acetaminophen Oral Susp [Tylenol Oral Susp] 500 mg PO Q4-6H #300 ml 12/15/18 [Rx] Bisacodyl [Dulcolax] 5 mg PO DAILY PRN #10 tablet. 12/15/18 [Rx] Ondansetron Odt [Zofran Odt] 4 mg PO Q8HR PRN #9 tab 12/15/18 [Rx] Simethicone 40 mg/0.6 ml Drops [Mylicon Drops] 40 mg PO PCHS PRN #30 ml 12/15/18 [Rx] [place] [facility] - 12/19/18 10:00 am Patient Instructions/Handouts: *Surgery [facility] - Scopalamine Patch Instructions, Abdominal Binder (DC), Nutrition after Bariatric Surgery (DC), Laparoscopic Sl eeve Gastrectomy (DC) Activity/Diet/Wound Care/Special Instructions: NO lifting over 4 pounds in 4 weeks, January 14. May shower. No bathtub soaks. Dressings to be removed by your doctor in the office. Drink 64 oz of fluid daily. Start protein shakes on . Notify bariatric center for temp over 101.0, increased pain, drainage from incisions. No straws or carbonated beverages. Liquid diet only. Sugar content should be less than 6 g to avoid dumping syndrome. Take MOM for constipation. CRUSH, OPEN, OR CUT TABLETS LARGER THAN A SIZE OF A TIC TAC Discharge Disposition: HOME SELF-CARE
== END 2018-12-17 16:27 | disposition home or self-care (01) | DRG 621 ==
LOC: 2ORMAIN 09:03 → 4SSUR 12:52
PROVIDERS: ADMIT Surgery Plastic and Reconstructive Surgery; ATTEND Surgery Plastic and Reconstructive Surgery
PROC: 0DJ08ZZ Inspection of Upper Intestinal Tract, Via Natural or Artificial Opening Endoscopic (ICD-10-PCS; principal; 2018-12-15 10:45)
PROC: 8E0W4CZ Robotic Assisted Procedure of Trunk Region, Percutaneous Endoscopic Approach (ICD-10-PCS; principal; 2018-12-15 10:45)
PROC: 0DB64Z3 Excision of Stomach, Percutaneous Endoscopic Approach, Vertical (ICD-10-PCS; principal; 2018-12-15 10:45)
DX: E66.01 Morbid (severe) obesity due to excess calories (principal); K21.9 Gastro-esophageal reflux disease without esophagitis; Z68.42 Body mass index [BMI] 45.0-49.9, adult; M17.0 Bilateral primary osteoarthritis of knee; M47.9 Spondylosis, unspecified; I11.9 Hypertensive heart disease without heart failure; K29.50 Unspecified chronic gastritis without bleeding; E55.9 Vitamin D deficiency, unspecified; M19.90 Unspecified osteoarthritis, unspecified site; D50.9 Iron deficiency anemia, unspecified; K91.0 Vomiting following gastrointestinal surgery; T40.2X5A Adverse effect of other opioids, initial encounter; E89.0 Postprocedural hypothyroidism; Z79.890 Hormone replacement therapy; Z85.850 Personal history of malignant neoplasm of thyroid; Z90.89 Acquired absence of other organs; Z80.9 Family history of malignant neoplasm, unspecified
CPT/HCPCS: 74210; 80051; 81025; 82310; 82565; 83735; 84100; 84520; 85025; 86850; 86900; 86901; 88307; 94640

== ENCOUNTER → 2018-12-19 | Outpatient (CLI) | payer BC ==
--- NOTE | 2018-12-19 12:04 | P.PN ---
Subjective Progress Note Date: 12/19/18 DATE OF SERVICE: 12/19/2018 CHIEF COMPLAINT: Morbid obesity HISTORY OF PRESENT ILLNESS: Mojgan Greenberg is a 43-year-old female who comes with lifelong morbid obesity. She is status post sleeve gastrectomy, 12/15/2018. She is POD 5. No reports of nausea. She has not started protein supplements or protein shakes. She had a bowel movement after taking a laxative. Her pain is controlled. No fevers or chills. No rash. No acute nausea or vomiting. She is not taking Nexium even though information placed on discharge orders. At height of 5 feet 7.5 inches, her ideal body weight is 158 pounds. She comes in 295 pounds unchanged from 1 month ago. Her body mass index highest is 46.2 down to 45.7. She is 137 pounds overweight. PHYSICAL EXAM: VITAL SIGNS: Height 5 foot 7.5 inches, weight 281 pounds. BMI 43.5 Vital Signs Temp 98.7 F 12/19/18 10:00 Pulse 70 12/19/18 10:00 Resp BP 120/83 12/19/18 10:00 Pulse Ox GENERAL: Well-developed in no acute distress. HEENT: No scleral icterus. Extraocular movements grossly intact. Hears conversational speech. No nasal drainage. NECK: Supple without lymphadenopathy. CHEST: Nonlabored respirations with equal bilateral excursions. CARDIOVASCULAR: Regular rate and regular rhythm. Distal 2+ pulses. ABDOMEN: Obese, soft. Dressing discontinued without signs of infection. Mild pucker along the left upper quadrant. MUSCULOSKELETAL: No clubbing, cyanosis. Gross strength 5/5 distal lower extremities. NEURO: No focal or lateralizing signs. Cranial nerves 2 through 12 grossly within normal limits. PSYCH: Appropriate affect. Alert and oriented to person, place and time. SKIN: Good skin turgor. Well perfused. ASSESSMENT: 1. Morbid obesity due to excess calories 2. Body mass index of 46.2 to 43.5 3. Osteoarthritis of the knees. 4. Osteoarthritis of the lower back. 5. Gastroesophageal reflux disease 6. Hypothyroidism 7. Hypertensive heart disease. 8. Iron deficiency 9. Vitamin D deficiency PLAN: 1. Recommended using Ana tea including broth to help with nausea and fluid retention. 2. Recommend milk of magnesia for constipation. 3. Recommend staying hydrated over 64 ounces described. 4. Immediate follow-up in the bariatric center in 3 days. 5. Recommend using fluid from protein supplement also encouraged for total fluids of over 60+ ounces daily 6. She should start her Nexium. 7. Gentle massage along the abdomen to address skin dimpling.
[2018-12-19 13:00] VITALS: BP 120/83; PULSE 70; TEMP 98.7; BMI 43.4
== END | disposition home or self-care (01) ==
LOC: BARWHC3 09:53
PROVIDERS: ATTEND Surgery Plastic and Reconstructive Surgery
DX: Z48.815 Encounter for surgical aftercare following surgery on the digestive system (principal); E66.01 Morbid (severe) obesity due to excess calories; M17.0 Bilateral primary osteoarthritis of knee; K21.9 Gastro-esophageal reflux disease without esophagitis; E03.9 Hypothyroidism, unspecified; I11.9 Hypertensive heart disease without heart failure; E61.1 Iron deficiency; E55.9 Vitamin D deficiency, unspecified; Z98.84 Bariatric surgery status; Z68.41 Body mass index [BMI] 40.0-44.9, adult
CPT/HCPCS: 99211

== ENCOUNTER → 2018-12-22 | Outpatient (CLI) | payer BC ==
[2018-12-22 12:00] VITALS: BP 116/82; PULSE 91; RESP 16; TEMP 98.4; BMI 42.1
--- NOTE | 2018-12-22 17:12 | P.PN ---
Progress Note - Text Progress Note Date: 12/22/18 Nurse visit. Please see nurse's note
== END ==
LOC: BARWHC3 09:57
PROVIDERS: ATTEND Surgery Plastic and Reconstructive Surgery
DX: Z48.815 Encounter for surgical aftercare following surgery on the digestive system (principal); R10.9 Unspecified abdominal pain; Z79.899 Other long term (current) drug therapy; Z98.84 Bariatric surgery status
CPT/HCPCS: 99211

== ENCOUNTER → 2018-12-24 | Outpatient (CLI) | payer BC ==
--- NOTE | 2018-12-24 20:00 | P.PN ---
Subjective Progress Note Date: 12/24/18 DATE OF SERVICE: 12/24/2018 CHIEF COMPLAINT: Morbid obesity HISTORY OF PRESENT ILLNESS: Mojgan Greenberg is a 43-year-old female who comes with lifelong morbid obesity. She is status post sleeve gastrectomy, 12/15/2018. She is POD 10. She is tolerating liquids. Protein intake is over 60 grams daily. She has started her omeprazole. No reports of gastroesophageal reflux disease. At height of 5 feet 7.5 inches, her ideal body weight is 158 pounds. She comes in 272 pounds from 295 pounds, 1 week ago. Her body mass index highest is 46.2 down to 42.1. Total weight loss is 23 pounds. Percent excess weight loss is 16%. PHYSICAL EXAM: VITAL SIGNS: Height 5 foot 7.5 inches, weight 272 pounds. BMI 42.1 GENERAL: Well-developed in no acute distress. HEENT: No scleral icterus. Extraocular movements grossly intact. Hears conversational speech. No nasal drainage. NECK: Supple without lymphadenopathy. CHEST: Nonlabored respirations with equal bilateral excursions. CARDIOVASCULAR: Regular rate and regular rhythm. Distal 2+ pulses. ABDOMEN: Obese, soft. Incision without infections. MUSCULOSKELETAL: No clubbing, cyanosis. Gross strength 5/5 distal lower extremities. NEURO: No focal or lateralizing signs. Cranial nerves 2 through 12 grossly within normal limits. PSYCH: Appropriate affect. Alert and oriented to person, place and time. SKIN: Good skin turgor. Well perfused. ASSESSMENT: 1. Morbid obesity due to excess calories 2. Body mass index of 46.2 to 42.1 3. Osteoarthritis of the knees. 4. Osteoarthritis of the lower back. 5. Gastroesophageal reflux disease 6. Hypothyroidism 7. Hypertensive heart disease. 8. Iron deficiency 9. Vitamin D deficiency 10. Status post sleeve gastrectomy PLAN: 1. Fluid intake is adequate 2. Follow up in 1 month 3. Protein intake over 75 grams daily advised.
== END | disposition home or self-care (01) ==
LOC: BARWHC3 15:50
PROVIDERS: ATTEND Surgery Plastic and Reconstructive Surgery
DX: E66.01 Morbid (severe) obesity due to excess calories (principal); Z68.41 Body mass index [BMI] 40.0-44.9, adult; M17.9 Osteoarthritis of knee, unspecified; M19.90 Unspecified osteoarthritis, unspecified site; K21.9 Gastro-esophageal reflux disease without esophagitis; E03.9 Hypothyroidism, unspecified; I11.0 Hypertensive heart disease with heart failure; I50.9 Heart failure, unspecified; E55.9 Vitamin D deficiency, unspecified; E61.1 Iron deficiency; Z98.84 Bariatric surgery status; Z79.899 Other long term (current) drug therapy
CPT/HCPCS: 99211

== ENCOUNTER → 2019-01-14 | Outpatient (CLI) | payer BC ==
[2019-01-14 17:51] VITALS: BP 129/76; PULSE 94; RESP 16; TEMP 99.1; BMI 40.8
--- NOTE | 2019-01-14 18:00 | P.PN ---
Subjective Progress Note Date: 01/14/19 DATE OF SERVICE: 01/14/2019 CHIEF COMPLAINT: Morbid obesity HISTORY OF PRESENT ILLNESS: Mojgan Greenberg is a 43-year-old female who comes with lifelong morbid obesity. She is status post sleeve gastrectomy, 12/15/2018. She is 1 month out. She has lost 30 pounds in 1 month. She reports trouble with milk of magnesia. Her protein intake is low. She drinks less than 40 ounces of fluid daily. At height of 5 feet 7.5 inches, her ideal body weight is 158 pounds. She comes in 264 pounds from 295 pounds, 1 month ago. She has lost 31 pounds in 1 month. Her body mass index highest is 46.2 down to 40.9. Total weight loss of 31 pounds. Percent excess weight loss of 22%. PHYSICAL EXAM: VITAL SIGNS: Height 5 foot 7.5 inches, weight 264 pounds. BMI 40.9 Vital Signs Temp 99.1 F 01/14/19 17:46 Pulse 94 01/14/19 17:46 Resp 16 01/14/19 17:46 BP 129/76 01/14/19 17:46 Pulse Ox GENERAL: Well-developed in no acute distress. HEENT: No scleral icterus. Extraocular movements grossly intact. Hears conversational speech. No nasal drainage. NECK: Supple without lymphadenopathy. CHEST: Nonlabored respirations with equal bilateral excursions. CARDIOVASCULAR: Regular rate and regular rhythm. Distal 2+ pulses. ABDOMEN: Obese, soft. MUSCULOSKELETAL: No clubbing, cyanosis. Gross strength 5/5 distal lower extremities. NEURO: No focal or lateralizing signs. Cranial nerves 2 through 12 grossly within normal limits. PSYCH: Appropriate affect. Alert and oriented to person, place and time. SKIN: Good skin turgor. Well perfused. ASSESSMENT: 1. Morbid obesity due to excess calories 2. Body mass index of 46.2 to 40.9 3. Osteoarthritis of the knees. 4. Osteoarthritis of the lower back. 5. Gastroesophageal reflux disease 6. Hypothyroidism 7. Hypertensive heart disease. 8. Iron deficiency 9. Vitamin D deficiency 10. Status post sleeve gastrectomy PLAN: 1. Recommend increase protein intake 75 g daily 2. Recommend drink more than 80 oz of fluids daily. 3. Recommend bariatric labs Objective - Vital Signs Vital signs: Vital Signs Temp 99.1 F 01/14/19 17:46 Pulse 94 01/14/19 17:46 Resp 16 01/14/19 17:46 BP 129/76 01/14/19 17:46 Pulse Ox Intake & Output 01/13/19 01/14/19 01/14/19 18:59 06:59 18:59 Weight 120.202 kg
== END | disposition home or self-care (01) ==
LOC: BARWHC3 16:30
PROVIDERS: ATTEND Surgery Plastic and Reconstructive Surgery
DX: E66.01 Morbid (severe) obesity due to excess calories (principal); M17.0 Bilateral primary osteoarthritis of knee; K21.9 Gastro-esophageal reflux disease without esophagitis; E03.9 Hypothyroidism, unspecified; M16.10 Unilateral primary osteoarthritis, unspecified hip; I11.9 Hypertensive heart disease without heart failure; D50.9 Iron deficiency anemia, unspecified; E55.9 Vitamin D deficiency, unspecified; Z98.84 Bariatric surgery status; Z68.42 Body mass index [BMI] 45.0-49.9, adult
CPT/HCPCS: 97803; 99211

== ENCOUNTER → 2019-01-23 | Outpatient (CLI) | payer BC ==
[2019-01-23 14:55] LABS: HCT 41.3 % (34.0-46.0); HGB 13.4 gm/dL (11.4-16.0); MCH 29.4 pg (25.0-35.0); MCHC 32.5 g/dL (31.0-37.0); MCV 90.5 fL (80.0-100.0); Mean Platelet Volume 7.1; Platelet Count 236 k/uL (150-450); RBC 4.56 m/uL (3.80-5.40); WBC 7.9 k/uL (3.8-10.6)
[2019-01-23 15:28] LABS: Partial Thromboplastin Time 24.8 sec (22.0-30.0); Prothrombin Time 10.8 sec (9.0-12.0)
[2019-01-23 18:58] LABS: % Iron Saturation 16.81 (12.00-45.00); ALT 21 U/L (8-44); AST 19 U/L (13-35); African American GFR (CKD) 129.4 (60.0-200.0); Albumin/Globulin Ratio 2.33 (1.60-3.17); Alkaline Phosphatase 57 U/L (41-126); BUN/Creat Ratio 16.67 Ratio (12.00-20.00); Calcium 9.1 mg/dL (8.7-10.3); Carbon Dioxide 25.9 mmol/L (21.6-31.8); Chloride 107 mmol/L (96-109); Chol/HDL Ratio 5.59; Cholesterol 190 mg/dL (0-200); Globulin 1.8 g/dL (1.6-3.3); Glucose 85 mg/dL (70-110); Iron 39 ug/dL (50-170); LDL Cholesterol,Calculated 127.8 mg/dL (0.0-131.0); Magnesium 1.6 mg/dL (1.5-2.4); Phosphorus 3.3 mg/dL (2.4-5.1); Potassium 4.4 mmol/L (3.5-5.5); Sodium 141 mmol/L (135-145); Total Bilirubin 0.4 mg/dL (0.3-1.2); Total Iron Binding Capacity 232 ug/dL (228-460)
[2019-01-23 19:16] LABS: Ferritin 373.8 ng/mL (10.0-291.0); Folate, Serum 14.7 ng/mL
[2019-01-23 21:24] LABS: Hemoglobin A1C 5.2 % (4.0-6.0)
[2019-01-26 13:06] LABS: Zinc, Serum 75 ug/dL (60-130)
[2019-01-27 07:06] LABS: Vitamin A 25 ug/dL (38-106)
[2019-01-27 07:50] LABS: Vit B1(Thiamine) 55 ug/L (38-122)
== END | disposition home or self-care (01) ==
LOC: LABWHC1 13:30
PROVIDERS: ATTEND Surgery Plastic and Reconstructive Surgery
DX: E21.1 Secondary hyperparathyroidism, not elsewhere classified (principal); E89.1 Postprocedural hypoinsulinemia; D50.9 Iron deficiency anemia, unspecified; K90.9 Intestinal malabsorption, unspecified; E55.9 Vitamin D deficiency, unspecified; K74.1 Hepatic sclerosis; N19 Unspecified kidney failure; K50.90 Crohn's disease, unspecified, without complications
CPT/HCPCS: 36415; 80053; 80061; 82306; 82525; 82607; 82728; 82746; 83036; 83540; 83550; 83735; 83970; 84100; 84134; 84255; 84425; 84443; 84590; 84630; 85027; 85610; 85730

== ENCOUNTER → 2019-01-23 | Outpatient (CLI) | payer BC ==
--- NOTE | 2019-01-23 14:59 | CT ---
EXAMINATION TYPE: CT abdomen pelvis wo con DATE OF EXAM: 01/23/2019 COMPARISON: None HISTORY: 43-year-old female Diverticulitis CT DLP: 1238.80 mGycm. Automated exposure control for dose reduction was used. TECHNIQUE: Contiguous axial scanning of the abdomen and pelvis without IV contrast. Coronal and sagit boaz reconstructions performed. FINDINGS: Normal size without pericardial effusion. Lung bases clear without pleural effusion. Postsurgical changes of sleeve gastrectomy. Noncontrast appearance of the liver, gallbladder, adrenal glands, right kidney, spleen, and pancreas show no gross abnormal body. 9 mm cortical based fat density lesion mid to lower pole left kidney. There is some focal fat stranding involving the subcutaneous adipose layer of the left mid abdomen, l ikely corresponding to scar. No dilated small bowel, free fluid, or free air. Scattered nonenlarged mesenteric lymph nodes are present throughout. However, lymph nodes are more nu merous in the right lower quadrant and borderline to mildly enlarged measuring up to 9 mm. Normal appendix. Mild stool burden. Slightly redundant sigmoid colon. No pericolonic inflammatory [place] nge. Bladder nondistended. Small amount of free fluid along the right cul-de-sac. Both ovaries are visuali zed. Mildly enlarged right external iliac chain lymph node measures 1.4 cm. Bones: No osseous destructive process. IMPRESSION: 1. Numerous nonenlarged and borderline to mildly enlarged mesenteric lymph nodes, most numerous at t he right lower quadrant measuring up to 9 mm. Nonspecific findings that may be reactive/post inflamma tory. Correlate for possible mesenteric adenitis. 2. Given an additional mildly enlarged right external iliac chain lymph node at 1.4 cm, a 3-6 month follow-up CT is recommended to ensure stability/resolution of these nodes. 3. Incidental 9 mm fat density lesion within the left kidney suggestive of a benign AML. 4. Mild right cul-de-sac free fluid likely physiologic. 5. Some focal fat stranding within the subcutaneous fat of the anterior left mid abdomen could repre sent scar tissue. Correlate for any focal pain here to exclude cellulitis.
== END | disposition home or self-care (01) ==
LOC: RADCTMAIN 13:15
PROVIDERS: ATTEND Surgery Plastic and Reconstructive Surgery
DX: K57.32 Diverticulitis of large intestine without perforation or abscess without bleeding (principal)
CPT/HCPCS: 74176

== ENCOUNTER → 2019-01-28 | Outpatient (CLI) | payer BC ==
[2019-01-28 16:34] VITALS: BP 124/86; PULSE 92; RESP 16; TEMP 98.1; BMI 40.1
--- NOTE | 2019-01-28 17:00 | P.PN ---
Subjective Progress Note Date: 01/28/19 DATE OF SERVICE: 01/28/2019 CHIEF COMPLAINT: Morbid obesity HISTORY OF PRESENT ILLNESS: Mojgan Greenberg is a 43-year-old female who is status post sleeve gastrectomy, 12/15/2018. She is less than 2 months out. She is doing well. She has recent abdominal pain along the left lower abdomen. She denies gastroesophageal reflux disease. At height of 5 feet 7.5 inches, her ideal body weight is 158 pounds. She comes in 259 pounds from 264 pounds, 2 weeks ago. She has lost 5 pounds in 2 weeks. Her body mass index highest is 46.2 down to 40.1. Total weight loss of 36 pounds, lifetime. Percent excess weight loss of 26 %. PHYSICAL EXAM: VITAL SIGNS: Height 5 foot 7.5 inches, weight 259 pounds. BMI 40.1 Vital Signs Temp 98.1 F 01/28/19 16:31 Pulse 92 01/28/19 16:31 Resp 16 01/28/19 16:31 BP 124/86 01/28/19 16:31 Pulse Ox GENERAL: Well-developed in no acute distress. HEENT: No scleral icterus. Extraocular movements grossly intact. Hears conversational speech. No nasal drainage. NECK: Supple without lymphadenopathy. CHEST: Nonlabored respirations with equal bilateral excursions. CARDIOVASCULAR: Regular rate and regular rhythm. Distal 2+ pulses. ABDOMEN: Obese, soft. Nontender. MUSCULOSKELETAL: No clubbing, cyanosis. Gross strength 5/5 distal lower extremities. NEURO: No focal or lateralizing signs. Cranial nerves 2 through 12 grossly within normal limits. PSYCH: Appropriate affect. Alert and oriented to person, place and time. SKIN: Good skin turgor. Well perfused. STUDIES: CT of the abdomen and pelvis independently reviewed with distended gallbladder, probable gallstones. Sleeve gastrectomy is unremarkable. Large right ovarian cyst. No bowel obstruction. No hernias of the abdominal wall. REPORT: CT abdomen pelvis reviewed with scarring along left upper abdomen subcutaneous tissue. Multiple pelvic lymph nodes. LABS: Iron is low. Total protein is low. Pre-albumin is low. Vitamin A is low. TSH is suppressed. ASSESSMENT: 1. Morbid obesity due to excess calories 2. Body mass index of 46.2 to 40.1 3. Osteoarthritis of the knees. 4. Osteoarthritis of the lower back. 5. Gastroesophageal reflux disease 6. Hypothyroidism 7. Hypertensive heart disease. 8. Iron deficiency 9. Vitamin D deficiency 10. Status post sleeve gastrectomy 11. Inadequate protein intake 12. Vitamin A deficiency PLAN: 1. Recommend decrease dose of thryoid medications. 2. Increase protein intake for low protein at least 75 grams daily. 3. Recommend ultrasound for gallstones 4. Recommend vitamin C for iron 5. Vitamin A supplement 10,000 units for deficiency and for visition 6. Follow up in March, Objective - Vital Signs Vital signs: Vital Signs Temp 98.1 F 01/28/19 16:31 Pulse 92 01/28/19 16:31 Resp 16 01/28/19 16:31 BP 124/86 01/28/19 16:31 Pulse Ox Intake & Output 01/27/19 01/28/19 01/28/19 18:59 06:59 18:59 Weight 117.934 kg
--- NOTE | 2019-01-28 17:02 | P.PN ---
Progress Note - Text Progress Note Date: 01/28/19 To whom it may concern: Mojgan Burnham is under my surgical care. She may return to work on February 09 without restrictions. Regards, Génesis Montemayor MD FACS
== END | disposition home or self-care (01) ==
LOC: BARWHC3 16:09
PROVIDERS: ATTEND Surgery Plastic and Reconstructive Surgery
DX: Z48.815 Encounter for surgical aftercare following surgery on the digestive system (principal); E66.01 Morbid (severe) obesity due to excess calories; M17.0 Bilateral primary osteoarthritis of knee; K21.9 Gastro-esophageal reflux disease without esophagitis; E03.9 Hypothyroidism, unspecified; I11.9 Hypertensive heart disease without heart failure; E61.1 Iron deficiency; E55.9 Vitamin D deficiency, unspecified; E50.9 Vitamin A deficiency, unspecified; E63.8 Other specified nutritional deficiencies; Z98.84 Bariatric surgery status; Z68.41 Body mass index [BMI] 40.0-44.9, adult
CPT/HCPCS: 99211

== ENCOUNTER → 2019-05-27 | Outpatient (CLI) | payer BC ==
--- NOTE | 2019-05-27 17:20 | P.PN ---
Subjective Progress Note Date: 05/27/19 DATE OF SERVICE: 05/27/2019 CHIEF COMPLAINT: Status post sleeve gastrectomy HISTORY OF PRESENT ILLNESS: Mojgan Greenberg is a 43-year-old female who is status post sleeve gastrectomy, 12/15/2018. She is 6 months out. She reports eating 70 grams of protein daily. Her personal goal is to get down to 170 pounds. She wants to lose another 45 pounds. She denies gastroesophageal reflux disease. She denies abdominal pain. She denies any troubles with her bowels. She reports hair loss. Her thyroid medication has changed in dosage. She denies any other change in medications. Her multivitamin is Centrum. At height of 5 feet 7.5 inches, her ideal body weight is 158 pounds. Her highest weight was 299 pounds. Her BMI was 46.2. She comes in 214 pounds from 259 pounds, 4 months ago. She has lost 45 pounds in 4 months. Her body mass index highest is 46.2 down to 33.2. Total weight loss of 84 pounds, lifetime. Percent excess weight loss of 60 %, lifetime. PHYSICAL EXAM: VITAL SIGNS: Height 5 foot 7.5 inches, weight 214 pounds. BMI 33.2 Vital Signs Temp 98 F 05/27/19 17:29 Pulse 76 05/27/19 17:29 Resp 16 05/27/19 17:29 BP 118/86 05/27/19 17:29 Pulse Ox GENERAL: Well-developed in no acute distress. HEENT: No scleral icterus. Extraocular movements grossly intact. Hears conversational speech. No nasal drainage. NECK: Supple without lymphadenopathy. CHEST: Nonlabored respirations with equal bilateral excursions. CARDIOVASCULAR: Regular rate and regular rhythm. Distal 2+ pulses. ABDOMEN: Obese, soft. Nontender. MUSCULOSKELETAL: No clubbing, cyanosis. NEURO: No focal or lateralizing signs. Cranial nerves 2 through 12 grossly within normal limits. PSYCH: Appropriate affect. Alert and oriented to person, place and time. SKIN: Good skin turgor. Well perfused. ASSESSMENT: 1. Morbid obesity due to excess calories 2. Body mass index of 46.2 to 40.1 3. Osteoarthritis of the knees. 4. Osteoarthritis of the lower back. 5. Gastroesophageal reflux disease 6. Hypothyroidism 7. Hypertensive heart disease. 8. Iron deficiency 9. Vitamin D deficiency 10. Status post sleeve gastrectomy 11. Inadequate protein intake 12. Vitamin A deficiency PLAN: 1. Recommend bariatric labs. 2. Recommend high potency multivitamin
[2019-05-27 17:31] VITALS: BP 118/86; PULSE 76; RESP 16; TEMP 98; BMI 33.1
== END | disposition home or self-care (01) ==
LOC: BARWHC3 16:17
PROVIDERS: ATTEND Surgery Plastic and Reconstructive Surgery
DX: E66.01 Morbid (severe) obesity due to excess calories (principal); Z68.41 Body mass index [BMI] 40.0-44.9, adult; M17.0 Bilateral primary osteoarthritis of knee; M47.816 Spondylosis without myelopathy or radiculopathy, lumbar region; K21.9 Gastro-esophageal reflux disease without esophagitis; E03.9 Hypothyroidism, unspecified; I11.9 Hypertensive heart disease without heart failure; E61.1 Iron deficiency; E55.9 Vitamin D deficiency, unspecified; E50.9 Vitamin A deficiency, unspecified; E44.1 Mild protein-calorie malnutrition; Z98.84 Bariatric surgery status
CPT/HCPCS: 97803; 99211